=== PATIENT | male | born 1990 | race Caucasian/White ===

== ENCOUNTER 2016-11-10 22:26 | Emergency (ER) ==
[2016-11-10 22:39] VITALS: BP 153/102; TEMP 97.7; BMI 45.6
[2016-11-10] MEDS ORDERED: LIDOCAINE 1 % AMP 5 ML (SUTURES) SQ STA (22:54)
--- NOTE | 2016-11-10 23:27 | ED.PDOC ---
General ED Provider: Dr. 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 He sustained discolored nail-purple color and a cut on the distal part of the finger. Time Seen by Physician: 22:50 Mode of Arrival: Walk-In Information Source: Patient Nursing and Triage Documentation Reviewed and Agree: Yes Skin Complaint Exam - Laceration/Abrasion/Hand Complaint/Exam Location of Injury: Hand Mechanism of Injury: Laceration, Blunt trauma Onset/Duration: 1 hour ago Symptoms Are: Still present Initial Severity: Severe Current Severity: Moderate Aggravating: Movement Alleviating: Compression Associated Signs and Symptoms: Reports: Numbness. Denies: Fever, Chills, Erythema, Tingling Related History: Reports: Right hand dominant Hand Picture: 1 - Discolored Nail. 2 - 2 cm laceration Differential Diagnoses: Laceration Review of Systems - Review Of Systems Constitutional: Reports: No symptoms Eyes: Reports: No symptoms Ears, Nose, Mouth, Throat: Reports: No symptoms Respiratory: Reports: No symptoms Cardiac: Reports: No symptoms GI: Reports: No symptoms : Reports: No symptoms Musculoskeletal: Reports: Joint pain Skin: Reports: Other (Finger laceration ) Neurological: Reports: Anxiety Endocrine: Reports: No symptoms Hematologic/Lymphatic: Reports: No symptoms All Other Systems: Reviewed and Negative Past Medical History - Past Medical History Endocrine: Reports: None Cardiovascular: Reports: Hypertension Respiratory: Reports: None Hematological: Reports: None Gastrointestinal: Reports: None Genitourinary: Reports: None Neuro/Psych: Reports: Migraine Musculoskeletal: Reports: None Cancer: Reports: None Other Pertinent Past Medical History: Obesity - Surgical History General Surgical History: Reports: Other (Nasal surgery ) - Family History Family History: Reports: None - Social History Smoking Status: Former smoker Hx Substance Use: No Alcohol Screening: None - Immunizations Tetanus Shot up to Date: Yes Physical Exam - Physical Exam Appearance: Well-appearing, Well-nourished Ill-appearing: Mild Pain Distress: Severe Skin: Warm, Dry Neurological: Sensation intact Psychiatric: Anxious Interpretation - Radiology Interpretation Radiology Interpretation By: ED Physician Radiology Results: Negative Exam Interpreted: Other (Right index finger. ) Procedures - Laceration/Wound Repair Right index finger Wound Description: Linear Wound Length (cm): 2 cm Wound Width: 0.3 Wound Depth: 0.1 Wound Explored: Contaminated Wound Irrigated: Yes Wound Prep: Hibiclens, Scrub Anesthesia: Lidocaine Wound Repaired With: Sutures Suture Size and Type: 4.0 Number of Sutures: 9 (Running ) - Nail Trepanation Nail Trepanation Location: right index Method of Drainage: Nail cauterized Sterile Dressing Applied: Yes Finger Splint: No Progress: Tolerated well Re-Evaluation - Re-Evaluation Time of Re-Evaluation: 23:30 Status: Improved Vital Signs Stable: Yes Pain Level: 2 Critical Care Note - Critical Care Note Total Time (mins): 0 Course - Course Orders, Labs, Meds: Orders Category Date Time Status Ibuprofen [Motrin] MEDS 11/10/16 23:39 Stat 600 mg PO ONCE STA Lidocaine HCl/Pf [Lidocaine 1 % Amp 5 ml (Sutures)] MEDS 11/10/16 22:54 Stat 5 ml SQ ONCE STA FINGER(S) RIGHT MIN 2V Stat RADS 11/10/16 23:19 Ordered Medications Discontinued Medications Generic Name Dose Route Start Last Admin Trade Name Shalomq PRN Reason Stop Dose Admin Ibuprofen 600 mg 11/10/16 23:39 Motrin PO 11/10/16 23:40 ONCE STA Lidocaine HCl 5 ml 11/10/16 22:54 11/10/16 23:22 Lidocaine 1 % Amp 5 Ml (Sutures) SQ 11/10/16 22:55 5 ml ONCE STA Administration Vital Signs: Temp Pulse Resp BP Pulse Ox 11/10/16 22:28 97.7 F 60 20 153/102 H 96 Departure - Departure Time of Disposition: 23:34 Disposition: HOME SELF-CARE Discharge Problem: Injury of finger, Subungual hematoma of right index finger Laceration of right index finger Qualifiers: Encounter type: initial encounter Damage to nail status: with damage Foreign body presence: without foreign body Qualifier Code: (S61.310A) Laceration without foreign body of right index finger with damage to nail, initial encounter Instructions: Finger Laceration (ED), Subungual Hematoma (ED) Condition: Stable Pt referred to PMD for follow-up: Yes Additional Instructions: Have sutures removed in 7-10 days Report any signs of infection. Prescriptions: Ibuprofen [Motrin] 600 mg PO Q6H PRN #20 tablet PRN Reason: Analgesia Allergies/Adverse Reactions: Allergies No Known Allergies Allergy (Unverified 11/10/16 22:38) Home Medications: Ambulatory Orders Ibuprofen [Motrin] 600 mg PO Q6H PRN #20 tablet 11/10/16 Propranolol HCl 10 mg PO DAILY 11/10/16 Disposition Discussed With: Patient, Family
[2016-11-10] MEDS ORDERED: MOTRIN PO STA (23:39)
--- NOTE | 2016-11-11 07:28 | DI ---
EXAM: Three views of the right second digit HISTORY: Trauma. COMPARISON: None FINDINGS: There is no cortical irregularity or displaced fracture of the right second digit. There is no lytic or blastic lesion. The joint spaces are maintained. There is mild soft tissue swelling . IMPRESSION: Mild soft tissue swelling with no acute osseous abnormality or fracture.
== END 2016-11-10 23:59 | disposition home or self-care (01) ==
LOC: ED 22:26
DX: S61.310A Laceration without foreign body of right index finger with damage to nail, initial encounter (principal); S60.121A Contusion of right index finger with damage to nail, initial encounter; W22.8XXA Striking against or struck by other objects, initial encounter; Y99.0 Civilian activity done for income or pay
CPT/HCPCS: 99283